=== PATIENT | female | born 1960 | race African-American/Black ===

== ENCOUNTER 2022-06-18 15:32 | Emergency (ER) | payer MEDICAID ==
[~2022-06-18] VITALS: Ht 165.1 cm; Wt 70.3 kg
[2022-06-18 15:59] VITALS: BP 164/81
[2022-06-18] MEDS ORDERED: FLUT16SP BNOSTRILS (16:20)
[2022-06-18] MEDS ORDERED: FLUT16SP16 BNOSTRILS (16:23)
== END 2022-06-18 16:27 | disposition home or self-care (01) ==
LOC: ER 15:48
DX: B34.9 Viral infection, unspecified (principal); I10 Essential (primary) hypertension; Z60.2 Problems related to living alone

== ENCOUNTER 2022-11-20 13:39 | Emergency (ER) | payer MEDICAID ==
[~2022-11-20] VITALS: Ht 165.1 cm; Wt 83.9 kg
[~2022-11-20 13:39] MED LIST: FLUT16SP16 BNOSTRILS
--- NOTE | 2022-11-20 14:00 | NUR ---
BIB RELATIVE C/O left leg pain x 5 days, pain meds not working.
--- NOTE | 2022-11-20 14:45 | NUR ---
AT BEDSIDE FOR EVAL.
[2022-11-20] MEDS ORDERED: KETOROLAC TROMETHAMINE INJ 30 MG/ML VIAL ONE (14:59)
[2022-11-20] MEDS ORDERED: KETOROLAC TROMETHAMINE INJ 60 MG/2 ML VIAL IM ONE (15:00)
--- NOTE | 2022-11-20 15:30 | NUR ---
U/S TECH AT BEDSIDE
[2022-11-20] MEDS ORDERED: HYDROMORPHONE 1 MG/1 ML DISP.SYRIN IM ONE (16:30)
[2022-11-20] MEDS ORDERED: HYDROMORPHONE 1 MG/1 ML DISP.SYRIN ONE (16:50)
--- NOTE | 2022-11-20 18:44 | NUR ---
SWAB FOR COVID19 SENT TO LAB
[2022-11-20] MEDS ORDERED: TIOT18CA3 PO (19:03)
[2022-11-20] MEDS ORDERED: ENAL20TA18 PO (19:03)
[2022-11-20] MEDS ORDERED: BENZ-38 PO (19:03)
[2022-11-20] MEDS ORDERED: OXYC30TA2 PO (19:03)
[2022-11-20] MEDS ORDERED: HYDR-3642 PO (19:03)
[2022-11-20] MEDS ORDERED: FLUT16SP16 BNOSTRILS (19:03)
[2022-11-20] MEDS ORDERED: IBUP-1955 PO (19:03)
[2022-11-20] MEDS ORDERED: HYDR25TA4 PO (19:03)
[2022-11-20] MEDS ORDERED: MORP100T4 PO (19:03)
[2022-11-20 19:05] LABS: BASOPHILS # (AUTO) 0.1 K/uL (0.0-0.2); BASOPHILS % (AUTO) 1.2 % (0.0-2.0); EOSINOPHILS % (AUTO) 0.5 % (0.0-6.0); HEMATOCRIT 44 % (33-45); HEMOGLOBIN 14.6 g/dL (11.5-14.8); LYMPHOCYTES # (AUTO) 2.3 K/uL (0.8-4.8); LYMPHOCYTES % (AUTO) 35.5 % (20.0-44.0); MEAN CORPUSCULAR HGB CONC 34 g/dl (31.0-36.0); MEAN CORPUSCULAR VOLUME 86 fL (82-100); MONOCYTES # (AUTO) 0.4 K/uL (0.1-1.30); MONOCYTES % (AUTO) 6.1 % (2.0-12.0); NEUTROPHILS # (AUTO) 3.7 K/uL (1.8-8.9); NEUTROPHILS % (AUTO) 56.7 % (43.0-81.0); PLATELET COUNT (AUTO) 313 K/uL (150-450); RED BLOOD CELL COUNT(AUTO) 5.06 MIL/uL (4.0-5.2); WHITE BLOOD COUNT (AUTO) 6.6 K/uL (4.3-11.0)
[2022-11-20 19:16] LABS: CALCIUM, SERUM 9.5 mg/dL (8.5-10.1); POTASSIUM 3.4 mmol/L (3.5-5.1)
--- NOTE | 2022-11-20 20:21 | NUR ---
clinicals given to herbert garcia cm over the phone
--- NOTE | 2022-11-20 20:29 | NUR ---
MAY CONTACT FANNIE JONES [phone] FOR UPDATE
--- NOTE | 2022-11-20 23:37 | NUR ---
ACCORDING TO ALEXIA'S ATOMIC WELDER; PT IS GOING TO BE PLACED AT [facility]. PATENT AND DAUGHTER MADE AWARE AND AGREED.
--- NOTE | 2022-11-21 01:16 | NUR ---
patient is A, Ox4, ambulatory with steady gaits. [place] [facility] [place] and requested to leave the hospital. Explained the process to the patient and encouraged her to stay and take a nap until we have the transfer info and details and ETA for her. she understood and refused to stay. I placed a call to the patient's daughter to made her aware and left a message for her. Patient does not wish to proceed with medical care recommended by Dr. Spangler. Patient given information related to possible complications, up to and including , which could occur as a result of leaving the hospital at this time. Patient verbalizes understanding of risks involved due to leaving against medical advice. Patient has signed AMA form.
--- NOTE | 2022-11-21 01:23 | NUR ---
radha kline CM made aware of AMA status
[2022-11-21 03:32] VITALS: BP 145/82
== END 2022-11-21 01:16 | disposition left against medical advice (07) ==
LOC: ER 13:45
DX: M51.17 Intervertebral disc disorders with radiculopathy, lumbosacral region (principal); M25.552 Pain in left hip; R26.2 Difficulty in walking, not elsewhere classified; I10 Essential (primary) hypertension; E11.9 Type 2 diabetes mellitus without complications; Z60.2 Problems related to living alone; Z79.899 Other long term (current) drug therapy; Z20.822 Contact with and (suspected) exposure to COVID-19
CPT/HCPCS: 99285; 72131; 93971; 87426; 96372 ×2; 72192; 85025; 80048; 36415; J1885; J1170; C9803

== ENCOUNTER 2023-02-01 12:03 | Emergency (ER) | payer MEDICAID ==
[~2023-02-01] VITALS: Ht 167.6 cm; Wt 83.9 kg
[~2023-02-01 12:03] MED LIST changes: +BENZ-38 PO; +ENAL20TA18 PO; +HYDR-3642 PO; +HYDR25TA4 PO; +IBUP-1955 PO; +MORP100T4 PO; +OXYC30TA2 PO; +TIOT18CA3 PO
[2023-02-01] MEDS ORDERED: KETOROLAC TROMETHAMINE 15 MG/ML VIAL ONE (12:25)
[2023-02-01] MEDS ORDERED: ONDANSETRON HCL/PF 4 MG/2 ML VIAL ONE (12:25)
[2023-02-01] MEDS ORDERED: ONDANSETRON HCL/PF - ER 4 MG/2 ML VIAL IV ONE (12:30)
[2023-02-01] MEDS ORDERED: KETOROLAC TROMETHAMINE INJ 30 MG/ML VIAL IV ONE (12:30)
[2023-02-01] MEDS ORDERED: IV NS 0.9% 1,000 ML BAG IV ONE (12:30)
[2023-02-01 12:46] LABS: BASOPHILS # (AUTO) 0.1 K/uL (0.0-0.2); BASOPHILS % (AUTO) 0.8 % (0.0-2.0); EOSINOPHILS % (AUTO) 0.2 % (0.0-6.0); HEMATOCRIT 43 % (33-45); LYMPHOCYTES # (AUTO) 1.1 K/uL (0.8-4.8); LYMPHOCYTES % (AUTO) 12.2 % (20.0-44.0); MEAN CORPUSCULAR HEMOGLOBIN 29 PG (26.0-33.0); MEAN CORPUSCULAR HGB CONC 33 g/dl (31.0-36.0); MEAN CORPUSCULAR VOLUME 89 fL (82-100); MONOCYTES # (AUTO) 0.3 K/uL (0.1-1.30); MONOCYTES % (AUTO) 2.9 % (2.0-12.0); NEUTROPHILS # (AUTO) 7.5 K/uL (1.8-8.9); NEUTROPHILS % (AUTO) 83.9 % (43.0-81.0); PLATELET COUNT (AUTO) 314 K/uL (150-450); RED BLOOD CELL COUNT(AUTO) 4.76 MIL/uL (4.0-5.2); RED CELL DISTRIBUTION WIDTH 14.2 % (11.5-15.0)
[2023-02-01 12:53] LABS: CALCIUM, SERUM 9.7 mg/dL (8.5-10.1); POTASSIUM 3.5 mmol/L (3.5-5.1)
[2023-02-01 13:06] LABS: LACTIC ACID 2.6 mmol/L (0.4-2.0)
[2023-02-01 13:07] LABS: ALBUMIN 3.3 g/dL (3.4-5.0); BILIRUBIN,DIRECT 0.1 mg/dL (0.0-0.2); BILIRUBIN,TOTAL 0.3 mg/dL (0.2-1.0); TOTAL PROTEIN, SERUM 7.3 g/dL (6.4-8.2)
[2023-02-01] MEDS ORDERED: CT SWABBABLE VALVE TRANS SET 1 EA INFUS.SET MC ONE (13:17)
[2023-02-01] MEDS ORDERED: IV NS 0.9% 250 ML IV ONE (13:17)
[2023-02-01] MEDS ORDERED: IOHEXOL-300 100 ML VIAL IV ONE (13:17)
[2023-02-01] MEDS ORDERED: MORPHINE SULFATE INJ 4 MG/ML DISP.SYRIN ONE (14:21)
[2023-02-01] MEDS ORDERED: DOCU-141 PO (14:30)
[2023-02-01] MEDS ORDERED: HYDR-4303 PO (14:30)
[2023-02-01] MEDS ORDERED: POLY17PO4 PO (14:30)
[2023-02-01] MEDS ORDERED: PRED50TA PO (14:30)
[2023-02-01] MEDS ORDERED: MORPHINE SULFATE INJ 2 MG/ML DISP.SYRIN IV ONE (14:30)
[2023-02-01] MEDS ORDERED: CIPR500T5 PO (14:30)
[2023-02-01 15:02] VITALS: BP 139/78; TEMP 98.4; O2SAT 98
== END 2023-02-01 15:02 | disposition home or self-care (01) ==
LOC: ER 12:07
DX: K52.9 Noninfective gastroenteritis and colitis, unspecified (principal); R10.31 Right lower quadrant pain; R11.10 Vomiting, unspecified; I10 Essential (primary) hypertension; Z60.2 Problems related to living alone; Z79.899 Other long term (current) drug therapy
CPT/HCPCS: 99285; 74177; 96374; 96375; 96361; 85025; 80048; 83605; 83690; 80076; 36415; J2270; J2405; J7030; J7050; Q9967; J1885

== ENCOUNTER 2023-05-28 02:34 | Emergency (ER) | payer MEDICAID ==
[~2023-05-28] VITALS: Ht 165.1 cm; Wt 78.0 kg
[~2023-05-28 02:34] MED LIST changes: +CIPR500T5 PO; +DOCU-141 PO; +HYDR-4303 PO; +POLY17PO4 PO; +PRED50TA PO
[2023-05-28] MEDS ORDERED: predniSONE 20 MG TABLET ONE (03:00)
[2023-05-28] MEDS ORDERED: CYCLOBENZAPRINE 10 MG TABLET ONE (03:00)
[2023-05-28] MEDS ORDERED: KETOROLAC TROMETHAMINE INJ 60 MG/2 ML VIAL IM ONE (03:00)
[2023-05-28] MEDS: CYCLOBENZAPRINE 10 MG TABLET PO ONE (03:08)
[2023-05-28] MEDS: predniSONE 20 MG TABLET PO ONE (03:08)
[2023-05-28] MEDS: KETOROLAC TROMETHAMINE INJ 60 MG/2 ML VIAL IM ONE (03:08)
[2023-05-28] MEDS ORDERED: PRED20TA PO (04:22)
[2023-05-28] MEDS ORDERED: KETO10TA2 PO (04:22)
[2023-05-28 04:27] VITALS: BP 123/54; TEMP 97.9; O2SAT 97
== END 2023-05-28 04:27 | disposition home or self-care (01) ==
LOC: ER 02:44
DX: M54.16 Radiculopathy, lumbar region (principal); M54.41 Lumbago with sciatica, right side; I10 Essential (primary) hypertension; Z60.2 Problems related to living alone
CPT/HCPCS: 99283; 96372; J7512; J1885

== ENCOUNTER 2023-07-01 19:03 | Inpatient (IN) | payer MEDICAID, OTHER ==
[~2023-07-01] VITALS: Ht 165.1 cm; Wt 77.1 kg
[~2023-07-01 19:03] MED LIST changes: +KETO10TA2 PO; +PRED20TA PO
[2023-07-01] MEDS ORDERED: ONDANSETRON HCL/PF 4 MG/2 ML VIAL ONE ×2 (20:22→22:23)
[2023-07-01] MEDS ORDERED: MORPHINE SULFATE INJ 4 MG/ML DISP.SYRIN ONE (20:22)
[2023-07-01] MEDS: IV NS 0.9% 1,000 ML BAG IV ONE (20:38)
[2023-07-01] MEDS: MORPHINE SULFATE INJ 2 MG/ML DISP.SYRIN IV ONE (20:39)
[2023-07-01] MEDS: ONDANSETRON HCL/PF 4 MG/2 ML VIAL IVP ONE (20:39)
[2023-07-01 21:02] LABS: BASOPHILS # (AUTO) 0.1 K/uL (0.0-0.2); BASOPHILS % (AUTO) 0.9 % (0.0-2.0); EOSINOPHILS % (AUTO) 0.4 % (0.0-6.0); HEMATOCRIT 44 % (33-45); HEMOGLOBIN 14.8 g/dL (11.5-14.8); LYMPHOCYTES # (AUTO) 2.1 K/uL (0.8-4.8); LYMPHOCYTES % (AUTO) 21.2 % (20.0-44.0); MEAN CORPUSCULAR HEMOGLOBIN 29 PG (26.0-33.0); MEAN CORPUSCULAR HGB CONC 34 g/dl (31.0-36.0); MEAN CORPUSCULAR VOLUME 87 fL (82-100); MONOCYTES # (AUTO) 0.5 K/uL (0.1-1.30); MONOCYTES % (AUTO) 5.4 % (2.0-12.0); NEUTROPHILS % (AUTO) 72.1 % (43.0-81.0); PLATELET COUNT (AUTO) 405 K/uL (150-450); RED BLOOD CELL COUNT(AUTO) 5.04 MIL/uL (4.0-5.2); RED CELL DISTRIBUTION WIDTH 13.1 % (11.5-15.0); WHITE BLOOD COUNT (AUTO) 9.7 K/uL (4.3-11.0)
[2023-07-01 21:22] LABS: ALBUMIN 3.2 g/dL (3.4-5.0); BILIRUBIN,DIRECT 0.1 mg/dL (0.0-0.2); BILIRUBIN,TOTAL 0.6 mg/dL (0.2-1.0); CALCIUM, SERUM 9.4 mg/dL (8.5-10.1); POTASSIUM 3.7 mmol/L (3.5-5.1); TOTAL PROTEIN, SERUM 7.6 g/dL (6.4-8.2)
[2023-07-01] MEDS ORDERED: HYDROMORPHONE 1 MG/1 ML DISP.SYRIN ONE (22:23)
[2023-07-01 22:28] LABS: APPEARANCE,URINE SLIGHTLY CLOUDY (CLEAR); BILIRUBIN,URINE 1+ (NEGATIVE); BLOOD, URINE NEGATIVE Ery/uL (NEGATIVE); COLOR,URINE DARK YELLOW (YELLOW); KETONES,URINE 3+ mg/dL (NEGATIVE); LEUKOCYTE ESTERASE ,URINE NEGATIVE (NEGATIVE); NITRITE, URINE NEGATIVE (NEGATIVE); PROTEIN,URINE NEGATIVE (NEGATIVE); UGLUCOSE 1+ mg/dL (NEGATIVE)
[2023-07-01] MEDS: HYDROMORPHONE 1 MG/1 ML DISP.SYRIN IV ONE (22:29)
[2023-07-01] MEDS: ONDANSETRON HCL/PF 4 MG/2 ML VIAL IV ONE (22:30)
[2023-07-01 22:33] LABS: ADD URINE CULTURE NO; BACTERIA,URINE Rare /HPF (None Seen); SQUAMOUS EPITHELIAL CELL,UR Few /HPF (None Seen); WBC,URINE 0-2 /HPF (0-3)
[2023-07-01] MEDS: MINERAL OIL 133 ML (PYXIS) 1 EA ENEMA RC ONE (23:10)
[2023-07-02 01:30] VITALS: TEMP 98.8
[2023-07-02] MEDS ORDERED: ONDANSETRON HCL/PF 4 MG/2 ML VIAL ONE (01:44)
[2023-07-02] MEDS: HYDROMORPHONE 1 MG/1 ML DISP.SYRIN IV ONE (01:49)
[2023-07-02] MEDS: ONDANSETRON HCL/PF - ER 4 MG/2 ML VIAL IV ONE (01:50)
[2023-07-02] MEDS ORDERED: ONDANSETRON HCL/PF 4 MG/2 ML VIAL IV PRN (04:00)
[2023-07-02] MEDS: HYDROMORPHONE 1 MG/1 ML DISP.SYRIN IV PRN (04:57)
[2023-07-02] MEDS: IV D5/ 0.9% NACL 1,000 ML IV PRN (04:57)
[2023-07-02 07:35] VITALS: O2SAT 96
[2023-07-02 07:58] LABS: BASOPHILS % (AUTO) 0.4 % (0.0-2.0); EOSINOPHILS % (AUTO) 0.1 % (0.0-6.0); HEMATOCRIT 42 % (33-45); HEMOGLOBIN 14.1 g/dL (11.5-14.8); LYMPHOCYTES # (AUTO) 2.6 K/uL (0.8-4.8); LYMPHOCYTES % (AUTO) 23.7 % (20.0-44.0); MEAN CORPUSCULAR HEMOGLOBIN 29 PG (26.0-33.0); MEAN CORPUSCULAR HGB CONC 34 g/dl (31.0-36.0); MEAN CORPUSCULAR VOLUME 86 fL (82-100); MONOCYTES # (AUTO) 0.6 K/uL (0.1-1.30); NEUTROPHILS # (AUTO) 7.9 K/uL (1.8-8.9); NEUTROPHILS % (AUTO) 70.8 % (43.0-81.0); PLATELET COUNT (AUTO) 414 K/uL (150-450); RED BLOOD CELL COUNT(AUTO) 4.84 MIL/uL (4.0-5.2); RED CELL DISTRIBUTION WIDTH 12.9 % (11.5-15.0); WHITE BLOOD COUNT (AUTO) 11.1 K/uL (4.3-11.0)
[2023-07-02 08:12] LABS: ALBUMIN 3.3 g/dL (3.4-5.0); BILIRUBIN,TOTAL 0.5 mg/dL (0.2-1.0); CALCIUM, SERUM 8.9 mg/dL (8.5-10.1); CREATININE 0.9 mg/dL (0.6-1.3); POTASSIUM 3.4 mmol/L (3.5-5.1); TOTAL PROTEIN, SERUM 7.6 g/dL (6.4-8.2)
[2023-07-02 08:19] LABS: THYROID STIMULATING HORMONE 0.421 uIU/mL (0.358-3.74)
[2023-07-02] MEDS ORDERED: INSULIN REGULAR, HUMAN 100 UNIT/ML 3 ML VIAL SQ PRN (09:00)
[2023-07-02] MEDS ORDERED: *INSULIN REGULAR(HUMULIN R)HUM 100 UNIT/ML VIAL SQ PRN (09:00)
[2023-07-02] MEDS ORDERED: hydrOXYzine 10 MG TABLET PO PRN (09:00)
[2023-07-02] MEDS ORDERED: DEXTROSE 50%-WATER 50 ML DISP.SYRIN IV PRN (09:00)
[2023-07-02] MEDS ORDERED: BENZONATATE 100 MG CAPSULE PO PRN (09:00)
[2023-07-02] MEDS ORDERED: oxyCODONE HCL SR 10MG TAB.SR.12H PO PRN (09:00)
[2023-07-02] MEDS: HYDROCHLOROTHIAZIDE 25 MG TABLET PO SCH (09:29)
[2023-07-02] MEDS: POTASSIUM CHLORIDE 20 MEQ TAB.PRT.SR PO ONE (09:29)
[2023-07-02 09:30] VITALS: BP 177/74
[2023-07-02] MEDS ORDERED: ACETAMINOPHEN 325 MG TABLET PO PRN (09:30)
[2023-07-02] MEDS: ENALAPRIL MALEATE (10 MG) 10 MG TABLET PO SCH (09:30)
[2023-07-02] MEDS: LACTULOSE 10 G/15 ML UDC (PYXIS) PO SCH (09:51)
[2023-07-02] MEDS ORDERED: BLOOD SUGAR DIAGNOSTIC 1 EACH STRIP VI SCH (12:00)
== END 2023-07-02 11:20 | disposition home or self-care (01) | DRG 247 ==
LOC: ER 19:09 → TRANSITION 07-02 04:40 → MEDSG1 07-02 07:56
PROVIDERS: ADMIT Internal Medicine; ATTEND Internal Medicine
DX: K56.41 Fecal impaction (principal); E11.51 Type 2 diabetes mellitus with diabetic peripheral angiopathy without gangrene; G89.4 Chronic pain syndrome; K80.20 Calculus of gallbladder without cholecystitis without obstruction; I10 Essential (primary) hypertension; M79.7 Fibromyalgia; R91.8 Other nonspecific abnormal finding of lung field; J21.9 Acute bronchiolitis, unspecified; Z95.820 Peripheral vascular angioplasty status with implants and grafts; K58.1 Irritable bowel syndrome with constipation
CPT/HCPCS: 36415; 80048-TC; 80053-TC; 80076-TC; 81001; 83690-TC; 83735-TC; 84443-TC; 85025-TC; G0378; J1170; J1815; J2270; J2405; J7042; Q0177

== ENCOUNTER 2023-11-24 01:28 | Emergency (ER) | payer OTHER ==
[~2023-11-24] VITALS: Ht 170.2 cm; Wt 65.8 kg
[~2023-11-24 01:28] MED LIST changes: -CIPR500T5 PO; -DOCU-141 PO; -FLUT16SP16 BNOSTRILS; -HYDR-4303 PO; -KETO10TA2 PO; -POLY17PO4 PO; -PRED20TA PO; -PRED50TA PO
[2023-11-24 01:34] VITALS: BP 144/67; TEMP 98.1; O2SAT 100
== END 2023-11-24 02:35 | disposition left against medical advice (07) ==
LOC: ER 01:29
DX: M79.606 Pain in leg, unspecified (principal); Z53.21 Procedure and treatment not carried out due to patient leaving prior to being seen by health care provider

== ENCOUNTER 2023-12-05 09:17 | Emergency (ER) | payer OTHER ==
[~2023-12-05] VITALS: Ht 165.1 cm; Wt 72.6 kg
[2023-12-05 09:28] VITALS: BP 172/95; TEMP 97.9
[2023-12-05] MEDS ORDERED: KETOROLAC TROMETHAMINE INJ 60 MG/2 ML VIAL IM ONE (09:53)
[2023-12-05] MEDS: KETOROLAC TROMETHAMINE INJ 60 MG/2 ML VIAL IM ONE (10:00)
[2023-12-05 10:45] VITALS: O2SAT 98
== END 2023-12-05 10:45 | disposition home or self-care (01) ==
LOC: ER 09:18
DX: G89.29 Other chronic pain (principal); M54.40 Lumbago with sciatica, unspecified side; I10 Essential (primary) hypertension; E11.9 Type 2 diabetes mellitus without complications; Z79.899 Other long term (current) drug therapy; Z60.2 Problems related to living alone
CPT/HCPCS: 99283; 96372; J1885